=== PATIENT | male | born 1945 | race Caucasian/White ===

== ENCOUNTER 2023-11-16 07:37 | Emergency (ER) | payer OTHER ==
[2023-11-16 08:28] LABS: Absolute Basophils 0.1 K/uL (0-0.5); Absolute Eosinophils 0.5 K/uL (0-0.5); Absolute Lymphocytes (CBC) 1.5 K/uL (0.7-4.9); Absolute Monocytes 0.7 K/uL (0.1-1.3); Absolute Neutrophil 4.4 K/uL (1.8-8.0); Basophils % 0.8 % (0-1.3); Eosinophils % 6.4 % (0-4.4); Hematocrit 43.5 % (39.6-49.0); Hemoglobin 14.8 g/dL (13.6-17.9); Lymphocytes % 20.6 % (15.3-44.8); MCH 31.6 pg (27.0-35.0); MPV 8.4 fL (7.6-11.3); Monocytes % 10.2 % (3.3-12.3); Nucleated Red Blood Cells % 0.1 % (0-0); Platelets 159 thou/uL (152-406); RBC Red Blood Cell Count 4.67 M/uL (4.33-5.43); Red Cell Distribution Width 12.8 % (12.1-15.2)
[2023-11-16 08:35] LABS: PT Prothrombin Time 13.2 SECONDS (9.5-12.5); PTT, Activated Partial Thromb 34.8 SECONDS (24.3-36.9); Protime INR 1.21
[2023-11-16] MEDS ORDERED: ONDANSETRON 4 MG/2 ML VIAL ONE (08:36)
[2023-11-16] MEDS ORDERED: MORPHINE 2 MG/ML SYR ONE (08:37)
[2023-11-16 08:43] LABS: Anion Gap 5.4 mEq/L (5.0-15.0); Potassium 4.4 mEq/L (3.5-5.1)
--- NOTE | 2023-11-16 09:22 | RAD REPORT ---
EXAM DESCRIPTION: Katlyn Single View11/16/2023 9:05 am CLINICAL HISTORY: fall COMPARISON: None TECHNIQUE: Portable AP view of the chest. FINDINGS: Elevation of the right hemidiaphragm, with right basilar probable atelectasis. The lungs a re otherwise clear. No pneumothorax or effusion. The cardiomediastinal contours are unremarkable. IMPRESSION: No acute cardiopulmonary process.
--- NOTE | 2023-11-16 09:23 | RAD REPORT ---
EXAM DESCRIPTION: RAD - Femur Left - 11/16/2023 9:05 am CLINICAL HISTORY: PAIN COMPARISON: Pelvis dated 11/16/2023 TECHNIQUE: Left femur, 2 views. FINDINGS: Displaced, impacted, fracture of the mid aspect of the left femoral neck. There is no dis location. Faint mineralization adjacent to the greater trochanter, may relate to sequelae of trochant rosy bursitis. No acute or suspicious bony finding. IMPRESSION: Displaced impacted fracture of the mid aspect of the left femoral neck.
--- NOTE | 2023-11-16 09:24 | RAD REPORT ---
EXAM DESCRIPTION: RAD - Pelvis - 11/16/2023 9:05 am CLINICAL HISTORY: BLUNT TRAUMA COMPARISON: Femur Left dated 11/16/2023 TECHNIQUE: Single AP view of the pelvis. FINDINGS: Displaced, impacted, left femoral neck fracture. The visualized pelvic ring is intact. No suspicious osseous lesions. Up to moderate degenerative changes of the hip joints. Visualized aspects of the abdomen and soft tissues are unremarkable. IMPRESSION: Displaced, impacted, left femoral neck fracture.
--- NOTE | 2023-11-16 09:35 | EDPHYS ---
Physician Documentation [facility] Name: Marco Pepper Age: 78 yrs Sex: Male : 1945 Arrival Date: 11/16/2023 Time: 07:37 Bed 15 Private MD: ED Physician Jhony Palacios HPI: 11/15 08:44 This 78 yrs old Male presents to ER via EMS with complaints of Hip Pain. rn 08:44 The patient or guardian reports an injury, pain. that occurred at home, sustained from rn a fall, left leg is externally rotated, The patient is not able to ambulate. There is no radiation of the patient's discomfort. The complaints affect the left leg. Onset: The symptoms/episode began/occurred just prior to arrival. Modifying factors: The symptoms are alleviated by nothing, the symptoms are aggravated by any movement. Associated signs and symptoms: Loss of consciousness: the patient experienced no loss of consciousness, Pertinent positives: None. abdominal pain, chest pain, headache, incontinence, shortness of breath, weakness. Severity of symptoms: At their worst the symptoms were mild, in the emergency department the symptoms are unchanged. The patient has not experienced similar symptoms in the past. The patient has not recently seen a physician. Patient reports fall from standing, mechanical, tripped on the edge of walkway. Denies head injury. No neck or back pain. No rib injury or chest pain. No abdominal pain. Takes Eliquis for atrial fibrillation. Reports isolated pain to the left hip. Unable to stand or get up after fall.. Historical: - Allergies: 07:40 No Known Allergies; bp - Home Meds: 07:40 Unable to obtain [Active]; bp - PMHx: 07:40 Hypertensive disorder; bp - Immunization history:: Adult Immunizations up to date. - Infectious Disease History:: Denies. - Social history:: Smoking status: Patient denies any tobacco usage or history of. - Family history:: not pertinent. - Hospitalizations: : No recent hospitalization is reported. ROS: 08:47 Constitutional: Negative for fever, chills, and weight loss, Neck: Negative for injury, rn pain, and swelling, Cardiovascular: Negative for chest pain, palpitations, and edema, Respiratory: Negative for shortness of breath, cough, wheezing, and pleuritic chest pain, Abdomen/GI: Negative for abdominal pain, nausea, vomiting, diarrhea, and constipation, Back: Negative for injury and pain, MS/Extremity: Positive for left hip injury and pain Neuro: Negative for headache, weakness, numbness, tingling, and seizure, Exam: 08:47 Constitutional: This is a well developed, well nourished patient who is awake, alert, rn and in no acute distress. Head/Face: Normocephalic, atraumatic. Eyes: Pupils equal round and reactive to light, extra-ocular motions intact. ENT: No oral trauma noted Neck: No midline cervical tenderness Cardiovascular: Regular rate and rhythm. No pulse deficits. Respiratory: No increased work of breathing, no retractions or nasal flaring. Abdomen/GI: Soft, non-tender Back: No spinal tenderness. Skin: Abrasions to left wrist, superficial, no active bleeding MS/ Extremity: Pulses equal, no cyanosis. Neurovascular intact. Mild painful range of motion left hip. Distal pulses intact and strong. Tenderness proximal left femur. Neuro: Awake and alert, GCS 15, oriented to person, place, time, and situation. Vital Signs: 07:39 BP 157 / 79; Pulse 75; Resp 16; Temp 98; Pulse Ox 97% ; bp 10:44 BP 131 / 86; Pulse 75; Resp 16; Pulse Ox 95% ; bp MDM: 07:42 Patient medically screened. 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 . 09:33 Differential diagnosis: hip fracture, intertrochanteric fracture, femoral neck rn fracture. Data reviewed: vital signs, nurses notes, lab test result(s), radiologic studies, plain films, and as a result, I will admit patient. Consideration of Admission/Observation Patient was admitted/placed on observation. Escalation of care including admission/observation considered. Counseling: I had a detailed discussion with the patient and/or guardian regarding the historical points, exam findings, and any diagnostic results supporting the discharge/admit diagnosis, lab results, radiology results, the need for further work-up and treatment in the hospital. Refusal of service: The patient/guardian displays adequate decision making capability and despite a detailed discussion of alternatives, benefits, risks, and consequences refuses: Admission to the hospital for further work-up and treatment. ED course: Patient with left femoral neck fracture with slight impaction. Discussed results with patient and spouse, they refused to be admitted here. Has a site planner at [facility] and his care is at [facility] so request transfer to [facility]. Transfer to [facility] initiated.. 09:34 Response to treatment: the patient's symptoms have mildly improved after treatment, and rn as a result, I will admit patient. 09:56 Independent interpretation of the following test(s) in the Emergency Department. rn 11/15 07:43 Order name: CBC with Diff; Complete Time: 08:35 rn 11/15 07:43 Order name: Basic Metabolic Panel; Complete Time: 09:18 rn 11/15 07:43 Order name: Protime (+inr); Complete Time: 09:18 rn 11/15 07:43 Order name: Ptt, Activated; Complete Time: 09:18 rn 11/15 07:42 Order name: XRAY Pelvis; Complete Time: 09:24 rn 11/15 07:42 Order name: XRAY Femur LEFT; Complete Time: 09:24 rn 11/15 07:43 Order name: XRAY Chest (1 view); Complete Time: 09:24 rn 11/15 08:47 Order name: EKG; Complete Time: 08:47 rn 11/15 07:43 Order name: NPO; Complete Time: 07:49 rn 11/15 07:43 Order name: IV Start; Complete Time: 09:23 rn 11/15 08:47 Order name: EKG - Nurse/Tech; Complete Time: 09:35 rn Administered Medications: 09:00 Drug: morphine IVP or IV 2 mg IVP once over 4 mins Route: IVP; Infused Over: 4 mins; bp Site: right antecubital; 10:52 Follow up: Response: No adverse reaction bp 09:00 Drug: Ondansetron IVP 4 mg IVP once; over 2 minutes Route: IVP; Site: right antecubital;bp 10:52 Follow up: Response: No adverse reaction bp 10:52 Drug: HYDROmorphone IVP 0.5 mg IVP once Route: IVP; Site: right antecubital; bp 10:52 Follow up: Response: No adverse reaction bp Disposition Summary: 11/16/23 09:35 Transfer Ordered Notes: Reason: Higher level of care rn Condition: Stable rn Problem: new 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 Nestor Barnes [facility](11/16/23 11:17) ld1 Diagnosis - Displaced fracture of base of neck of left femur rn Forms: - Medication Reconciliation Form rn - SBAR form rn Signatures: Dispatcher [employer] EDMS Jhony Palacios MD MD rn Peltier, Brian RN BRIAN bp Jamilah Castillo eb Tammie Anaya RN RN ld1 Corrections: (The following items were deleted from the chart) 07:41 07:40 Home Meds: None; bp bp 07:43 07:43 Pelvis+RAD.RAD.BRZ ordered. EDMS EDMS 07:43 07:43 Femur Left+RAD.RAD.BRZ ordered. EDMS EDMS 07:43 07:43 CBC+H.LAB.BRZ ordered. EDMS EDMS 07:43 07:43 BASIC METABOLIC PANEL+C.LAB.BRZ ordered. EDMS EDMS 07:43 07:43 PROTIME (+INR)+COAG.LAB.BRZ ordered. EDMS EDMS 07:43 07:43 PTT, ACTIVATED+COAG.LAB.BRZ ordered. EDMS EDMS 10:53 09:35 Dr. bravo eb 10:53 09:35 [facility] brian eb 11:17 10:53 Dr. Nestor Barnes [facility] eb ld1
--- NOTE | 2023-11-16 09:35 | ER ---
Nurse's Notes [facility] Name: Marco Pepper Age: 78 yrs Sex: Male : 1945 Arrival Date: 11/16/2023 Time: 07:37 Bed 15 Private MD: Diagnosis: Displaced fracture of base of neck of left femur Presentation: 11/15 07:39 Chief complaint: EMS states: LEFT HIP PAIN AFTER MECHANICAL FALL, NO LOC, LATERAL bp ROTATION. Coronavirus screen: At this time, the client does not indicate any symptoms associated with coronavirus-19. Ebola Screen: No symptoms or risks identified at this time. Initial Sepsis Screen: Does the patient meet any 2 criteria? No. Patient's initial sepsis screen is negative. Does the patient have a suspected source of infection? No. Patient's initial sepsis screen is negative. Risk Assessment: Do you want to hurt yourself or someone else? Patient reports no desire to harm self or others. Onset of symptoms was November 16, 2023 at 07:00. 07:39 Method Of Arrival: EMS: [facility] bp 07:39 Acuity: INOCENTE 3 bp Triage Assessment: 07:40 General: Appears in no apparent distress. uncomfortable, Behavior is calm, cooperative, bp appropriate for age. Pain: Complains of pain in left hip. Historical: - Allergies: 07:40 No Known Allergies; bp - Home Meds: 07:40 Unable to obtain [Active]; bp - PMHx: 07:40 Hypertensive disorder; bp - Immunization history:: Adult Immunizations up to date. - Infectious Disease History:: Denies. - Social history:: Smoking status: Patient denies any tobacco usage or history of. - Family history:: not pertinent. - Hospitalizations: : No recent hospitalization is reported. Screenin:42 [facility] ED Fall Risk Assessment (Adult) History of falling in the last 3 months, bp including since admission No falls in past 3 months (0 pts). Abuse screen: Denies threats or abuse. Denies injuries from another. Nutritional screening: No deficits noted. Tuberculosis screening: No symptoms or risk factors identified. Assessment: 07:42 General: Appears in no apparent distress. uncomfortable. Musculoskeletal: Bony bp deformity noted of left hip. 09:00 Reassessment: No changes from previously documented assessment. Patient is alert, bp oriented x 3, equal unlabored respirations, skin warm/dry/pink. 10:44 Reassessment: REPORT TO OPAL TORRES AT [facility] ER. TRANSPORT PENDING. bp Vital Signs: 07:39 BP 157 / 79; Pulse 75; Resp 16; Temp 98; Pulse Ox 97% ; bp 10:44 BP 131 / 86; Pulse 75; Resp 16; Pulse Ox 95% ; bp ED Course: 07:38 Patient arrived in ED. bp 07:40 Triage completed. bp 07:40 Arm band placed on. bp 07:42 Jhony Palacios MD is Attending Physician. rn 07:42 Patient has correct armband on for positive identification. Bed in low position. bp 07:49 Alonzo Lopez, BRIAN is Primary Nurse. bp 09:00 Inserted saline lock: 20 gauge in right forearm, using aseptic technique. Blood bp collected. 09:07 XRAY Pelvis In Process Unspecified. EDMS 09:07 XRAY Femur LEFT In Process Unspecified. EDMS 09:07 XRAY Chest (1 view) In Process Unspecified. EDMS 09:34 initiated a transfer with Lilia from the [facility] transfer teachey at the request of the patient. 09:34 EKG done, by ED staff. aw1 09:35 Door closed. Lights dimmed. Warm blanket given. Pillow given. aw1 09:50 per Lilia [facility] will have to decline the patient in transfer due to being at capacity. 09:54 initiated a transfer with Malia from the [facility]. eb 10:31 administrative approval given by Blake Church Rn/ patient has been accepted to [facility] ED/ Dr. Nestor Barnes the orthopedic lead radiation therapist has accepted the patient in transfer without conference with Dr. Palacios/ report to be called to the charge nurse at [phone]. Administered Medications: 09:00 Drug: morphine IVP or IV 2 mg IVP once over 4 mins Route: IVP; Infused Over: 4 mins; bp Site: right antecubital; 10:52 Follow up: Response: No adverse reaction bp 09:00 Drug: Ondansetron IVP 4 mg IVP once; over 2 minutes Route: IVP; Site: right antecubital;bp 10:52 Follow up: Response: No adverse reaction bp 10:52 Drug: HYDROmorphone IVP 0.5 mg IVP once Route: IVP; Site: right antecubital; bp 10:52 Follow up: Response: No adverse reaction bp Medication: 07:42 VIS not applicable for this client. bp Outcome: 09:35 ER care complete, transfer ordered by . rn 11:17 Patient left the ED. ld1 Signatures: Dispatcher [employer] EDMS Jhony Palacios MD MD rn Peltier, Brian, RN RN bp Botello, Elizabeth eb Sims, Lauren, RN RN ld1 Mora Arce aw1 Corrections: (The following items were deleted from the chart) 07:41 07:40 Home Meds: None; bp bp
[2023-11-16] MEDS ORDERED: HYDROMORPHONE HCL 0.5 MG/0.5 ML INJ ONE (10:47)
[2023-11-16 11:31] VITALS: BP 131/86; TEMP 98; O2SAT 95
--- NOTE | 2023-11-17 11:56 | EKG ---
Test Date: 2023-11-16 Test Time: 09:30:37 Pie Chef: FLO MEASUREMENT RESULTS: Intervals: Rate: 76 MA: 210 QRSD: 146 QT: 406 QTc: 456 Gore: P: 72 MA: 210 QRS: -32 T: 30 INTERPRETIVE STATEMENTS: Sinus rhythm with 1st degree AV block with occasional and consecutive premature ventricular complexes Left axis deviation Right bundle branch block Abnormal ECG No previous ECG available for comparison Electronically Signed On 11-17-23 11:54:12 CDT by Alex Stewart
== END 2023-11-16 11:17 | disposition short-term general hospital (02) ==
LOC: ER 07:37
DX: S72.042A Displaced fracture of base of neck of left femur, initial encounter for closed fracture (principal); W18.30XA Fall on same level, unspecified, initial encounter; Y92.009 Unspecified place in unspecified non-institutional (private) residence as the place of occurrence of the external cause; I10 Essential (primary) hypertension
CPT/HCPCS: 93005; 85025; 80048; 36415; 85610; 85730; 71045; 72170; 73552; 96375; 96374; 99284; J2270; J1170; J2405